=== PATIENT | male | born 1945 | race American Indian/Alaskan Native ===

== ENCOUNTER 2017-04-20 10:04 | Inpatient (IN) | payer MEDICARE, BC ==
[2017-04-14 08:28] VITALS: BMI 35.9
[2017-04-20 11:46] LABS: INR 1.1
[2017-04-20] MEDS ORDERED: Propofol 10 mg/ml Inj (20 ML) ONE (11:48)
[2017-04-20] MEDS ORDERED: Gentamicin 80 mg in 0.9% NS 160 MG/200 ML BAG IVPB ONE (12:13)
[2017-04-20] MEDS ORDERED: cefTRIAXone IV 1 gm in Dextros 50 ML IVPB ONE (12:13)
[2017-04-20] MEDS ORDERED: Lidocaine 2% Jelly (Uro-Jet) ONE (12:14)
[2017-04-20] MEDS ORDERED: Succinylcholine Chloride 20 mg/ml Syr (5 ml) IV ONE (12:46)
[2017-04-20] MEDS ORDERED: Neostigmine Methylsulfate 3mg/3ml Syringe IV ONE (13:31)
[2017-04-20] MEDS ORDERED: HYDROmorphone 0.5 mg/0.5 ml ISec IVP PRN (14:16)
--- NOTE | 2017-04-20 14:22 | PCM.SURG1 ---
Surgeon's Initial Post Op Note - Surgeon's Notes Surgeon: Catrachito Cruz Computer Numerical Control Grinder: none Type of Anesthesia: General Endo Pre-Operative Diagnosis: bph, retention Operative Findings: same Post-Operative Diagnosis: same Operation Performed: TURP Specimen/Specimens Removed: urine. prostate Estimated Blood Loss: EBL {In ML}: 100 Blood Products Given: N/A Post-Op Condition: Good Date of Surgery/Procedure: 04/20/17 Time of Surgery/Procedure: 14:10
[2017-04-20] MEDS ORDERED: Oxycodone/Acetaminophen 5/325 mg Tab PO PRN (14:25)
[2017-04-20] MEDS: Potassium Ch 20mEq in D5-1/2NS 1,000 ML IV SCH (18:30)
--- NOTE | 2017-04-20 18:40 | CP.PCM.HP ---
<Rosaura Rothman - Last Filed: 04/20/17 18:35> History of Present Illness - History of Present Illness History of Present Illness: 71 year old male with PMHx of HTN, HLD, BPH and urinary retention. Admitted under medicine service s/p TURP procedure 04/20 (Dr. Catrachito Cruz) for management of chronic medical conditions during observation period. As per patient, he had been experiencing 7 weeks of urinary retention associated with dribbling leading up to the TURP. Denies hematuria prior to surgery, but had one day of hematuria following a cystoscopy performed 3 weeks ago. As per patient, his last PSA was 2.9, 2weeks ago. Currently denies fever , chills, nausea, vomiting, dizziness, chest pain, palpitations, SOB, abdominal pain. PMD: [place] Urologist: Catrachito Cruz PMHx: HTN, HLD, BPH, urinary retention SurgHx: TURP (04/20/17), cystoscopy (~03/30/17), appendectomy as a teenager Allergies: NKDA Home Meds: - Coreg 25 mg PO bid - Nifedipine ER 90 mg PO bid - Irbesartan PO daily(dose unknown) - Simvastatin 40 mg PO daily - HCTZ 25 mg PO daily - Tamsulosin 0.4 mg PO bid - Finasteride 5 mg PO daily FamHx: denies SocialHx: lives with ; denies tobacco/alcohol/illicit drug use; works for a [employer] ROS: (+) hematuria (-) fever, chills, nausea, vomiting, dizziness, chest pain, palpitations, SOB, abdominal pain Present on Admission - Present on Admission Any Indicators Present on Admission: No Urinary Catheter: Yes (S/P TURP) Review of Systems - Review of Systems All systems: reviewed and no additional remarkable complaints except Review of Systems: As per HPI Past Patient History - Past Medical History & Family History Past Medical History?: Yes - Past Social History Smoking Status: Never Smoked - CARDIAC Hx Cardiac Disorders: Yes Hx Hypercholesterolemia: Yes Hx Hypertension: Yes - MUSCULOSKELETAL/RHEUMATOLOGICAL Hx Musculoskeletal Disorders: Yes Hx Osteoarthritis: Yes (SHOULDERS) - GENITOURINARY/GYNECOLOGICAL Hx Genitourinary Disorders: Yes (SANDHU TO LEG BAG) Hx Prostate Problems: Yes - SURGICAL HISTORY Hx Surgeries: Yes Hx Appendectomy: Yes Other/Comment: CYSTOSCOPY - ANESTHESIA Hx Anesthesia: Yes Hx Anesthesia Reactions: No Hx Malignant Hyperthermia: No Has any member of the family had a problem w/ anesthesia?: No Meds Allergies/Adverse Reactions: Allergies Allergy/AdvReac Type Severity Reaction Status Date / Time No Known Allergies Allergy Verified 04/14/17 08:27 Physical Exam - Constitutional Appears: Well, Non-toxic, No Acute Distress - Head Exam Head Exam: ATRAUMATIC, NORMAL INSPECTION, NORMOCEPHALIC - Eye Exam Eye Exam: EOMI, Normal appearance - ENT Exam ENT Exam: Mucous Membranes Moist - Neck Exam Neck exam: Negative for: Lymphadenopathy, Thyromegaly - Respiratory Exam Respiratory Exam: Clear to Auscultation Bilateral, NORMAL BREATHING PATTERN. absent: Accessory Muscle Use, Rhonchi, Wheezes - Cardiovascular Exam Cardiovascular Exam: RRR, +S1, +S2 - GI/Abdominal Exam GI & Abdominal Exam: Normal Bowel Sounds, Soft. absent: Tenderness - Exam Additional comments: 3 way Sandhu catheter connected to CBI - Extremities Exam Extremities exam: Negative for: pedal edema - Neurological Exam Neurological exam: Alert, Oriented x3 - Psychiatric Exam Psychiatric exam: Normal Affect, Normal Mood - Skin Skin Exam: Normal Color, Warm Results - Vital Signs Recent Vital Signs: Last Vital Signs Temp 97.5 F L 04/20/17 17:00 Pulse 66 04/20/17 17:00 Resp 17 04/20/17 17:00 BP 132/70 04/20/17 17:00 Pulse Ox 97 04/20/17 17:00 - Labs Labs: Laboratory Results - last 24 hr 04/20/17 04/20/17 11:19 12:38 PT 12.2 INR 1.1 APTT 32 Blood Type O POSITIVE Antibody Screen Negative Assessment & Plan - Assessment and Plan (Free Text) Assessment: 71 year old male admitted to medicine service for observation S/P Turp procedure. Plan: 1. S/P Turp Procedure -Hematuria expected post procedure -currently on CBI -Management per Urology (Rajendra Cruz) 2. Hx of HTN Cont. Home medications -Coreg 25mg PO BID -Nifedipine ER 90mg PO BID -Irbesartan PO Daily (Dose unknown, will hold until daughter comes back with dosage) 3. Hx of HLD -Crestor 10mg PO Daily 4. Urinary retention 2/2 BPH Cont. Home medications -tamsulosin 0.4mg PO Daily -Finasteride 5mg PO BID Dispo: Will likely be discharged tomorrow. This is Dr. Castro patient. Dr. Jacob who is covering for him is aware and has been consulted. Patient seen and discussed with Attending Rosaura Rothman - PGY1 - Date & Time Date: 04/20/17 Time: 16:00 <Gabriela Castillo V - Last Filed: 04/21/17 00:42> Results - Vital Signs Recent Vital Signs: Last Vital Signs Temp 99.0 F 04/20/17 22:25 Pulse 96 H 04/20/17 22:25 Resp 20 04/20/17 22:25 BP 153/74 H 04/20/17 22:25 Pulse Ox 94 L 04/20/17 22:25 - Labs Labs: Laboratory Results - last 24 hr 04/20/17 04/20/17 11:19 12:38 PT 12.2 INR 1.1 APTT 32 Blood Type O POSITIVE Antibody Screen Negative Attending/Attestation - Attestation I have personally seen and examined this patient.: Yes I have fully participated in the care of the patient.: Yes I have reviewed all pertinent clinical information: Yes Notes (Text): Patient seen in the PACU post-operative for TURP procedure for history of urinary retention. Patient has history of hypertension, hyperlipidemia, and urinary retention. Patient's PMD, Dr. Navarrete (she not he) is away, covered by Dr. Jacob. Resident spoke with Dr. Jacob will be available for consult. Patient seen in PACU, patient is pleasant, alerted oriented X3, noted mild discomfort in regards to the sandhu, reports last bowel movement was day before, and reports he took his blood pressure medications this morning. Per urologi, minimal blood lost during procedure and urine does not appear bloody. Patient is on antibiotic, pain medication, and sandhu placed per urology. Patient is admitted under the hospitalist service for observation. Dr. Theresa Cruz on board for urologic management for urinary retention and s/p Turp Procedure. Assessment/Plan 1. Urinary Retention S/P Turp Procedure * Urology (Dr. Theresa Cruz) on board-->help appreciated * Surgery management including preoperative/intraoperative/postoperative per surgery * Anticoagulation and pain management per surgery * currently on CBI * Patient ordered for Rocephin IV post procedure 2. Hx of HTN * Cont. Home medications * Coreg 25mg PO BID * Nifedipine ER 90mg PO BID * Irbesartan PO Daily (Dose unknown, will hold until daughter comes back with dosage) 3. Hx of HLD * Crestor 10mg PO Daily 4. Prophylactic care * Patient is POD 0 for TURP procedure. Anticoagulation per surgery. Disposition: Patient to be observed overnight and possible discharge tomorrow pending urology clearance. Patient's PMD is Dr. Reeves who is away, covered by Dr. Jacob who is covering for him is aware and has been consulted.
[2017-04-20 22:31] VITALS: RESP 20
--- NOTE | 2017-04-20 23:21 | CP.PCM.CON ---
History of Present Illness - History of Present Illness History of Present Illness: Patient examined in the post anesthesia unit. This is a 71 years old male who just underwent a TURP by Dr Theresa Cruz for a BPH with urinary retention. A consultation was called to manage the patient medically. He has no complaint now. He is known to have a hypertension, a hypercholesterolemia, and a BPH, on Nifedipine, Coreg, Crestor, Flomax, Proscar , Simvastatin and HCTZ. Review of Systems - Genitourinary Genitourinary: Difficulty Urinating Past Patient History - Infectious Disease Hx of Infectious Diseases: None - Tetanus Immunizations Tetanus Immunization: Unknown - Past Medical History & Family History Past Medical History?: Yes - Past Social History Smoking Status: Never Smoked Alcohol: Occasional Drugs: Denies Home Situation {Lives}: With Family Domestic Violence: Negative - CARDIAC Hx Cardiac Disorders: Yes Hx Hypercholesterolemia: Yes Hx Hypertension: Yes - MUSCULOSKELETAL/RHEUMATOLOGICAL Hx Musculoskeletal Disorders: Yes Hx Osteoarthritis: Yes (SHOULDERS) - GENITOURINARY/GYNECOLOGICAL Hx Genitourinary Disorders: Yes (SANDHU TO LEG BAG) Hx Prostate Problems: Yes - SURGICAL HISTORY Hx Surgeries: Yes Hx Appendectomy: Yes Other/Comment: CYSTOSCOPY - ANESTHESIA Hx Anesthesia: Yes Hx Anesthesia Reactions: No Hx Malignant Hyperthermia: No Has any member of the family had a problem w/ anesthesia?: No Meds Allergies/Adverse Reactions: Allergies Allergy/AdvReac Type Severity Reaction Status Date / Time No Known Allergies Allergy Verified 04/14/17 08:27 - Medications Medications: Current Medications Carvedilol (Coreg) 25 mg PO BID [facility] Docusate Sodium (Colace) 100 mg PO TID [facility] Last Admin: 04/20/17 21:09 Dose: 100 mg Finasteride (Proscar) 5 mg PO DAILY [facility] Hydrochlorothiazide (Hydrodiuril) 25 mg PO DAILY [facility] Potassium Chloride/Dextrose/Sod Cl (Potassium Chl 20 Meq In D5-1/2ns) 1,000 mls @ 100 mls/hr IV .Q10H [facility] Last Admin: 04/20/17 18:30 Dose: 300 mls Ceftriaxone Sodium (Rocephin Iv 1 Gm Duplex) 50 mls @ 100 mls/hr IVPB DAILY [facility] Nifedipine (Procardia Xl) 90 mg PO DAILY [facility] Oxycodone/Acetaminophen (Percocet 5/325 Mg Tab) 1 tab PO Q4H PRN PRN Reason: Pain, moderate (4-7) Stop: 04/23/17 14:26 Rosuvastatin Calcium (Crestor) 10 mg PO HS [facility] Last Admin: 04/20/17 21:09 Dose: 10 mg Tamsulosin HCl (Flomax) 0.4 mg PO DAILY [facility] Physical Exam - Constitutional Appears: Well, No Acute Distress - Head Exam Head Exam: NORMAL INSPECTION - Eye Exam Eye Exam: Normal appearance - ENT Exam ENT Exam: Normal Exam - Neck Exam Neck exam: Positive for: Normal Inspection - Respiratory Exam Respiratory Exam: Clear to Auscultation Bilateral, NORMAL BREATHING PATTERN - Cardiovascular Exam Cardiovascular Exam: REGULAR RHYTHM - GI/Abdominal Exam GI & Abdominal Exam: Normal Bowel Sounds, Soft - Rectal Exam Rectal Exam: Deferred - Exam Exam: NORMAL INSPECTION - Extremities Exam Extremities exam: Positive for: normal inspection - Back Exam Back exam: NORMAL INSPECTION - Neurological Exam Neurological exam: Alert, Oriented x3 - Psychiatric Exam Psychiatric exam: Anxious - Skin Skin Exam: Dry, Intact, Normal Color, Warm Results - Vital Signs Recent Vital Signs: Last Vital Signs Temp 99.0 F 04/20/17 22:25 Pulse 96 H 04/20/17 22:25 Resp 20 04/20/17 22:25 BP 153/74 H 04/20/17 22:25 Pulse Ox 94 L 04/20/17 22:25 - Labs Labs: Laboratory Results - last 24 hr 04/20/17 04/20/17 11:19 12:38 PT 12.2 INR 1.1 APTT 32 Blood Type O POSITIVE Antibody Screen Negative Assessment & Plan (1) S/P TURP Assessment and Plan: As per Dr Cruz. Status: Acute (2) Hypertension Assessment and Plan: Controlled. To continue Nifedipine, Coreg and HCTZ. Status: Acute
[2017-04-21] MEDS: Potassium Ch 20mEq in D5-1/2NS 1,000 ML IV SCH ×2 (00:45→05:20)
[2017-04-21 07:29] LABS: HEMATOCRIT 39.9 % (35.0-51.0); MEAN CELL VOLUME 84.8 fL (80.0-94.0); MEAN CORPUSCULAR HEMOGLOBIN 28.5 pg (27.0-31.0); MEAN CORPUSCULAR HGB CONC 33.6 g/dL (33.0-37.0); MEAN PLATELET VOLUME 10.6 fL (7.2-11.7); RED CELL DISTRIBUTION WIDTH 13.9 % (11.5-14.5); WHITE BLOOD COUNT 11.8 K/uL (4.8-10.8)
[2017-04-21 08:34] LABS: CHLORIDE 100 mmol/L (98-107); POTASSIUM 3.9 mmol/L (3.6-5.2); SODIUM 133 mmol/L (132-148)
[2017-04-21 08:37] LABS: BLOOD UREA NITROGEN 13 mg/dL (9-20); CARBON DIOXIDE 23 mmol/L (22-30); GFR AFRICAN-AMERICAN > 60
[2017-04-21 08:38] LABS: CALCIUM 8.8 mg/dl (8.6-10.4); GLUCOSE,RANDOM 100 mg/dL (75-110)
[2017-04-21] MEDS ORDERED: NIFEdipine 90 mg ER Tab PO SCH (10:00)
[2017-04-21] MEDS ORDERED: cefTRIAXone IV 1 gm in Dextros 50 ML IVPB SCH (10:00)
[2017-04-21 16:53] VITALS: PULSE 78; TEMP 97.9; O2SAT 95
[2017-04-21 17:08] VITALS: BP 163/89
--- NOTE | 2017-04-21 18:34 | CP.PCM.DIS ---
<Rosaura Rothman - Last Filed: 04/22/17 23:26> Provider - Provider Date of Admission: 04/20/17 10:04 Attending physician: Gabriela Castillo DO Time Spent in preparation of Discharge (in minutes): 40 Diagnosis - Discharge Diagnosis (1) S/P TURP Status: Resolved Hospital Course - Lab Results Lab Results: Micro Results 04/20/17 16:10 Urine,Tai Urine Culture - Final No Growth (<1,000 CFU/ML) Most Recent Lab Values WBC 11.8 K/uL (4.8-10.8) H 04/21/17 07:16 RBC 4.70 Mil/uL (4.40-5.90) 04/21/17 07:16 Hgb 13.4 g/dL (12.0-18.0) 04/21/17 07:16 Hct 39.9 % (35.0-51.0) 04/21/17 07:16 MCV 84.8 fL (80.0-94.0) 04/21/17 07:16 MCH 28.5 pg (27.0-31.0) 04/21/17 07:16 MCHC 33.6 g/dL (33.0-37.0) 04/21/17 07:16 RDW 13.9 % (11.5-14.5) 04/21/17 07:16 Plt Count 254 K/uL (130-400) 04/21/17 07:16 MPV 10.6 fL (7.2-11.7) 04/21/17 07:16 PT 12.2 SECONDS (9.7-12.2) 04/20/17 11:19 INR 1.1 04/20/17 11:19 APTT 32 SECONDS (21-34) 04/20/17 11:19 Sodium 133 mmol/L (132-148) 04/21/17 07:16 Potassium 3.9 mmol/L (3.6-5.2) 04/21/17 07:16 Chloride 100 mmol/L (98-107) 04/21/17 07:16 Carbon Dioxide 23 mmol/L (22-30) 04/21/17 07:16 Anion Gap 14 (10-20) 04/21/17 07:16 BUN 13 mg/dL (9-20) 04/21/17 07:16 Creatinine 0.9 mg/dL (0.8-1.5) 04/21/17 07:16 Est GFR ( Amer) > 60 04/21/17 07:16 Est GFR (Non-Af Amer) > 60 04/21/17 07:16 Random Glucose 100 mg/dL (75-110) 04/21/17 07:16 Calcium 8.8 mg/dl (8.6-10.4) 04/21/17 07:16 Blood Type O POSITIVE 04/20/17 12:38 Antibody Screen Negative 04/20/17 12:38 - Hospital Course Hospital Course: Patient admitted under hospitalist service for observation s/p TURP procedure (Dr. Catrachito Cruz).~ He was initially seen by medicine team post-op in PACU with 3-way Tai for continuous bladder irrigation, 1400cc blood-tinged urine without clots in bag.~ Tai bag with CBI on morning of 04/21 showed 1800cc pale yellow urine.~ Patient started on Rocephin IV post procedure.~ Vitals stable throughout hospital stay, patient had no complaints of chest pain, SOB, or pain.~ Patient's PMD is Dr. Taylor who is away, covered by Dr. Jacob, is aware and had been consulted.~ Patient is to make an appointment to follow up Dr. Catrachito Cruz within 24 hours of discharge. He will go home with a tai in place and bag. He is to follow up at Dr. Catrachito Moon office for follow up and tai removal. He was advised to drink plenty of water, not to do any heavy pushing, pulling, or lifting, and to follow up with his primary medical physician within 1 week. Patient is stable for discharge per medical team and Dr. Cruz. He will go home with Colace and Levaquin. He will continue his home medications. He is agreeable to plan and medications. Patient seen and discussed with Attending Rosaura Rothman PGY-1 - Date & Time of H&P Date of H&P: 04/21/17 Time of H&P: 13:00 Discharge Exam - Head Exam Head Exam: NORMAL INSPECTION - Eye Exam Eye Exam: EOMI, Normal appearance - ENT Exam ENT Exam: Mucous Membranes Moist - Respiratory Exam Respiratory Exam: Clear to PA & Lateral - Cardiovascular Exam Cardiovascular Exam: RRR, +S1, +S2 - GI/Abdominal Exam GI & Abdominal Exam: Normal Bowel Sounds, Soft. absent: Tenderness - Exam Additional comments: tai catheter - Extremities Exam Additional comments: no pedal edema - Neurological Exam Neurological exam: Alert, Oriented x3 - Psychiatric Exam Psychiatric exam: Normal Affect, Normal Mood - Skin Skin Exam: Dry, Intact, Normal Color, Warm Discharge Plan - Discharge Medications Prescriptions: Docusate [Colace] 100 mg PO DAILY #30 cap Levofloxacin [Levaquin] 500 mg PO DAILY #10 tablet - Follow Up Plan Condition: GOOD Disposition: HOME/ ROUTINE Instructions: Laxative, Stool Softeners (By mouth), Levofloxacin (By mouth), Urinary Retention in Men (GEN), Benign Prostatic Hypertrophy (DC), Transurethral Prostatectomy (DC), Tai Catheter Placement and Care (DC), Pain Management After Surgery (DC), Urinary Leg Bag (GEN) Additional Instructions: Please make an appointment with Dr. Rajendra Cruz within 24 hours of discharge for a follow up appointment Please no heavy pushing, pulling, or lifting. Drink plenty of water Follow up with your primary medical provider within 1 week. Referrals: Theresa Cruz MD [Staff Provider] - <Gabriela Castillo V - Last Filed: 04/27/17 00:42> Provider - Provider Date of Admission: 04/20/17 10:04 Attending physician: Gabriela Castillo, DO Hospital Course - Lab Results Lab Results: Micro Results 04/20/17 16:10 Urine,Tai Urine Culture - Final No Growth (<1,000 CFU/ML) Most Recent Lab Values WBC 11.8 K/uL (4.8-10.8) H 04/21/17 07:16 RBC 4.70 Mil/uL (4.40-5.90) 04/21/17 07:16 Hgb 13.4 g/dL (12.0-18.0) 04/21/17 07:16 Hct 39.9 % (35.0-51.0) 04/21/17 07:16 MCV 84.8 fL (80.0-94.0) 04/21/17 07:16 MCH 28.5 pg (27.0-31.0) 04/21/17 07:16 MCHC 33.6 g/dL (33.0-37.0) 04/21/17 07:16 RDW 13.9 % (11.5-14.5) 04/21/17 07:16 Plt Count 254 K/uL (130-400) 04/21/17 07:16 MPV 10.6 fL (7.2-11.7) 04/21/17 07:16 PT 12.2 SECONDS (9.7-12.2) 04/20/17 11:19 INR 1.1 04/20/17 11:19 APTT 32 SECONDS (21-34) 04/20/17 11:19 Sodium 133 mmol/L (132-148) 04/21/17 07:16 Potassium 3.9 mmol/L (3.6-5.2) 04/21/17 07:16 Chloride 100 mmol/L (98-107) 04/21/17 07:16 Carbon Dioxide 23 mmol/L (22-30) 04/21/17 07:16 Anion Gap 14 (10-20) 04/21/17 07:16 BUN 13 mg/dL (9-20) 04/21/17 07:16 Creatinine 0.9 mg/dL (0.8-1.5) 04/21/17 07:16 Est GFR ( Amer) > 60 04/21/17 07:16 Est GFR (Non-Af Amer) > 60 04/21/17 07:16 Random Glucose 100 mg/dL (75-110) 04/21/17 07:16 Calcium 8.8 mg/dl (8.6-10.4) 04/21/17 07:16 Blood Type O POSITIVE 04/20/17 12:38 Antibody Screen Negative 04/20/17 12:38 Attending/Attestation - Attestation I have personally seen and examined this patient.: Yes I have fully participated in the care of the patient.: Yes I have reviewed all pertinent clinical information, including history, physical exam and plan: Yes Notes (Text): This is late computer entry for 04/21/17. Patient is post-operative Day 1 for TURP procedure for history of urinary retention. Patient denies acute complaints Patient has history of hypertension, hyperlipidemia, and urinary retention. Patient's PMD, Dr. Navarrete (she not he) is away, covered by Dr. Jacob, who is on consult. Patient monitored during the day. Patient's pain is controlled. Ambulatory. Patient had a bowel movement. Discussed with Dr. Catrachito Cruz, patient is stable from urology perspective for discharge; and to follow-up in the office. Discharge instructions per urology including discharge with w tai, scripts provided by urology included Percocet PRN, Levaquin, and Colace. This is a summary of patient's hospitalization. Please see EMR for full details. Discharge Diagnoses 1. Urinary Retention S/P Turp Procedure POD 1 * Urology (Dr. Theresa Cruz) on board-->help appreciated * Surgery management including preoperative/intraoperative/postoperative per surgery * Anticoagulation and pain management per surgery * currently on CBI; off CBI at end of the day * Patient ordered for Rocephin IV post procedure * Urology stable for discharge 04/21-->discharge on Colace, Levaquin, and Percocet PRN 2. Hx of HTN * Cont. Home medications * Coreg 25mg PO BID * Nifedipine ER 90mg PO BID * Irbesartan PO Daily (Dose unknown, will hold until daughter comes back with dosage) * Resume home medications on discharge 3. Hx of HLD * Crestor 10mg PO Daily * Resume home medications on discharge 4. Prophylactic care * Patient is POD 1 for TURP procedure. Anticoagulation per surgery.
--- NOTE | 2017-04-24 13:29 | OP ---
PROCEDURE DATE: 04/20/2017 PREOPERATIVE DIAGNOSES: Urinary retention. Enlarged prostate. POSTOPERATIVE DIAGNOSES: Urinary retention. Enlarged prostate. PROCEDURE: Transurethral resection of prostate. OPERATING SURGEON: Theresa Cruz MD PROCEDURE IN DETAIL: As follows; general anesthesia was administered. The patient was placed in lithotomy position. Genitalia was prepped and draped sterilely. Perioperative antibiotics were administered. A 26-Amharic continuous flow resectoscope sheath was introduced under direct vision. Urethra, prostate and bladder were inspected. FINDINGS: There was no stricture in the anterior urethra. There was evidence of trilobar prostatic hypertrophy. There was middle lobe hypertrophy with intravesical intrusion. There was moderate bladder trabeculation. The resectoscope was inserted. Resection of the prostate was begun at the bladder neck and intravesical lobe of the prostate. The ureteral orifices were identified and spared. The middle lobe was resected. Thereafter, the anterior roof tissue within the prostatic urethra was resected. Subsequently, the right lateral lobe and thereafter the left lateral lobe were resected. Finally, the floor and apical prostatic tissue were resected. Hemostasis was achieved after each section of resection. The prostatic chips were removed using the [employer] scientific evacuator. The resectoscope was reinserted. Hemostasis was complete. There were no residual prostatic chips. The veru was intact. The ureteral orifices were identified and both intact. The resectoscope and sheath removed. Ruby catheter was inserted. Bladder drainage was clear with mild traction applied. The patient tolerated the procedure without complication. Theresa Cruz MD cc: Patient's chart and Theresa Cruz MD
== END 2017-04-21 19:10 | disposition home or self-care (01) | DRG 714 ==
LOC: C.9S 10:04 → C.6T 21:57
PROVIDERS: ADMIT Hospitalist; ATTEND Hospitalist
PROC: 0VT08ZZ Resection of Prostate, Via Natural or Artificial Opening Endoscopic (ICD-10-PCS; principal; 2017-04-20 12:00)
DX: N40.1 Benign prostatic hyperplasia with lower urinary tract symptoms (principal); I10 Essential (primary) hypertension; R33.8 Other retention of urine; E78.5 Hyperlipidemia, unspecified